=== PATIENT | female | born 2000 | race Caucasian/White ===

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

== ENCOUNTER 2020-05-11 07:45 | Outpatient (CLI) | payer OTHER | END 2020-05-11 08:00 | disposition home or self-care (01) | LOC: MRI 07:45 | PROVIDERS: ATTEND Psychiatry & Neurology Neurology | DX: J32.0 Chronic maxillary sinusitis (principal) | CPT/HCPCS: 70551 ==